=== PATIENT | female | born 1970 | race African-American/Black ===

== ENCOUNTER 2017-03-03 09:14 | Emergency (ER) | payer OTHER ==
[~2017-03-03] VITALS: Ht 165.1 cm; Wt 83.9 kg
[~2017-03-03 09:14] MED LIST: AMITRIPTYLINE100 M2 PO; FLEXERIL10 MG PO; VALTREX500 M1 PO
[2017-03-03 09:18] VITALS: BP 109/77
--- NOTE | 2017-03-03 09:36 | ED GENERAL ADULT ---
History of Present Illness General Chief Complaint: General Adult Stated Complaint: REQ MED REFILL Source: patient Exam Limitations: no limitations Vital Signs & Intake/Output Vital Signs & Intake/Output Vital Signs Date Time Temp Pulse Resp B/P B/P Pulse O2 O2 Flow FiO2 Mean Ox Delivery Rate 03/03 0918 98.5 95 18 109/77 97 Room Air Allergies Coded Allergies: NO KNOWN ALLERGIES (01/18/16) Reconcile Medications Amitriptyline HCl 100 MG TABLET 2 TAB PO QPM mental health Amitriptyline HCl 100 MG TABLET 2 TAB PO QPM BIPOLAR DISORDER Triage Note: PT TOED REQUESTING REFILL OF RX: AMITRIPTYLINE 100 MG, 2 TABS QHS. RAN OUT AT THE END OF DECEMBER, "I HAVE INSURANCE AGIAN" Triage Nurses Notes Reviewed? yes Onset: Gradual Duration: getting worse Timing: recent history Severity: moderate Severity Numbers: 5 : No Patient currently breastfeeds: No HPI: Patient is a 46-year-old female with a past medical history of bipolar disorder who states that she's been on amitriptyline 100 mg 2 tablets once a day at night for approximately 5 years where she states that in the fall she recently lost her insurance and her psychiatric provider where she states that approximately 45 days she hasn't reestablishment with a new provider however she states that due to patient's not being on her amitriptyline for approximately one month she is complaining of worsening maria luisa symptoms. Patient denies any homicidal or suicidal ideation denies any illicit drug use denies any auditory or visual hallucinations. Past History Travel History Traveled to [place] past 21 day No Medical History Any Pertinent Medical History? see below for history Neurological: NONE EENT: NONE Cardiovascular: NONE Respiratory: asthma Gastrointestinal: NONE Hepatic: NONE Renal: NONE Musculoskeletal: NONE Psychiatric: bipolar disease Endocrine: NONE Blood Disorders: NONE Cancer(s): NONE SUBSTATION WIREMAN/Reproductive: NONE Surgical History Surgical History: non-contributory Psychosocial History What is your primary language Indonesian Tobacco Use: Current Daily Use Daily Tobacco Use Amount/Type: => 5 Cigarettes daily ETOH Use: denies use Illicit Drug Use: denies illicit drug use Family History Hx Contributory? No Review of Systems Review of Systems Constitutional: Reports: no symptoms. EENTM: Reports: no symptoms. Respiratory: Reports: no symptoms. Cardiovascular: Reports: no symptoms. GI: Reports: no symptoms. Genitourinary: Reports: no symptoms. Musculoskeletal: Reports: no symptoms. Skin: Reports: no symptoms. Neurological/Psychological: Reports: see HPI. Hematologic/Endocrine: Reports: no symptoms. Immunologic/Allergic: Reports: no symptoms. All Other Systems: Reviewed and Negative Physical Exam Physical Exam General Appearance: no apparent distress, alert, comfortable Head: atraumatic Eyes: Bilateral: normal appearance, PERRL. Ears, Nose, Throat: hearing grossly normal Neck: normal inspection Respiratory: normal breath sounds, chest non-tender, no respiratory distress Cardiovascular: regular rate/rhythm Extremities: normal inspection, normal capillary refill Neurologic/Psych: no motor/sensory deficits, awake, alert Skin: intact, normal color, warm/dry Core Measures ACS in differential dx? No CVA/TIA Diagnosis: No Sepsis Present: No Sepsis Focused Exam Completed? No Progress Differential Diagnoses I considered the following diagnoses in my evaluation of the patient: [Bipolar disorder, medication refill,] Plan of Care: Patient did bring in the bottle of amitriptyline that was prescribed in November of 100 mg 2 tabs daily Patient currently denies any acute illness Crisis management was able to make appointment for patient in one week for IOP. Initial ED EKG: none Departure Departure Disposition: HOME OR SELF CARE Condition: Stable Clinical Impression Primary Impression: Bipolar disorder Referrals: Unknown (PCP/Family) Additional Instructions: As discussed begin the prescription of amitriptyline as directed for your symptoms, prescriptions waiting at [facility]. Please follow-up with the established IOP appointment as one has been made for you in the emergency room, if symptoms worsen or if YOU develop any new concerning symptom return to the emergency room. Departure Forms: Customer Survey General Discharge Information Prescriptions: Current Visit Scripts Amitriptyline HCl 2 TAB PO QPM #42 TAB Critical Care Note Critical Care Note Critical Care Time: non-applicable
[2017-03-03] MEDS ORDERED: AMITRIPTYLINE100 M2 PO (10:21)
== END 2017-03-03 10:39 ==
LOC: ERH 09:14
DX: F31.9 Bipolar disorder, unspecified (principal)
CPT/HCPCS: 99281